=== PATIENT | female | born 1945 | race Caucasian/White ===

== ENCOUNTER → 2017-03-01 | Outpatient (CLI) | payer MEDICARE ==
[2016-02-11 09:00] VITALS: BP 142/71
[~2017-03-01] MED LIST: ALLO100T PO; BRIM5DRO3 EACHEYE; BYSTOLIC5 MG PO; GLIM2TAB2 PO; LISI-334 PO; LOVA10TA PO; OMEG100020 PO; VENL75CA PO
--- NOTE | 2017-03-01 15:31 | RAD ---
DATE: 03/01/2017 EXAM: DIGITAL SCREEN BILAT W/CAD HISTORY: Breast screening, previous right breast cancer COMPARISON: 06/12/2015, 02/11/2016 This study was interpreted with the benefit of Computerized Aided Detection (CAD). The breast parenchyma is heterogeneously dense, which could reduce sensitivity of mammography. Breast parenchyma level C. FINDINGS: No new or enlarging breast densities are seen. A breast biopsy marker is noted centrally in the left breast. Benign type calcifications are present. No suspicious microcalcifications have developed. IMPRESSION: Stable mammograms without evidence of malignancy. BI-RADS CATEGORY: 2 BENIGN FINDING(S) RECOMMENDED FOLLOW-UP: 12M 12 MONTH FOLLOW-UP PQRS compliance statement: Patient information was entered into a reminder system with a target due date for the next mammogram. Mammography is a sensitive method for finding small breast cancers, but it does not detect them all and is not a substitute for careful clinical examination. A negative mammogram does not negate a clinically suspicious finding and should not result in delay in biopsying a clinically suspicious abnormality. "Our facility is accredited by the [employer] Mammography [employer]."
== END | disposition home or self-care (01) ==
LOC: MAMMO 09:18
PROVIDERS: ATTEND Internal Medicine Hematology & Oncology
DX: Z12.31 Encounter for screening mammogram for malignant neoplasm of breast (principal)
CPT/HCPCS: G0202; 77067

== ENCOUNTER → 2018-03-25 | Outpatient (CLI) | payer MEDICARE ==
[2016-02-11 09:00] VITALS: BP 142/71
--- NOTE | 2018-03-25 15:46 | RAD ---
DATE: 03/25/2018 2:00 AM EXAM: MAMMO DONALDO DIAG BILAT HISTORY: routine diagnostic evaluation. History of prior right breast cancer. COMPARISON: Prior mammographic imaging dating back to 11/30/2008 Bilateral CC and MLO views of the breasts were performed. Bilateral breast tomosynthesis was performed in CC and MLO projections. This study was interpreted with the benefit of Computerized Aided Detection (CAD ). Breast Density: The breast parenchyma is heterogeneously dense, which could reduce sensitivity of mammography. Breast parenchyma level C. FINDINGS: Benign calcifications are present. Apparent architectural distortion in the posterior depth right breast is stable to at least prior mammogram 11/26/2011, possibly from posttreatment change of known prior right breast cancer. Otherwise, no suspicious masses, microcalcifications or architectural distortion is present to suggest malignancy in either breast. The visualized axillae are unremarkable. IMPRESSION: No mammographic evidence of malignancy. BI-RADS CATEGORY: 2 BENIGN FINDING(S) RECOMMENDED FOLLOW-UP: 12M 12 MONTH FOLLOW-UP Annual screening mammography is recommended, unless clinically indicated sooner based on symptoms or change in physical exam. PQRS compliance statement: Patient information was entered into a reminder system with a target due date 03/26/2018 for the next mammogram. Mammography is a sensitive method for finding small breast cancers, but it does not detect them all and is not a substitute for careful clinical examination. A negative mammogram does not negate a clinically suspicious finding and should not result in delay in biopsying a clinically suspicious abnormality. "Our facility is accredited by the [employer] Mammography Program." MACIEJD
== END | disposition home or self-care (01) ==
LOC: MAMMO 09:21
PROVIDERS: ATTEND Internal Medicine Hematology & Oncology
DX: Z00.00 Encounter for general adult medical examination without abnormal findings (principal); Z85.3 Personal history of malignant neoplasm of breast
CPT/HCPCS: 77066; G0279; 77062

== ENCOUNTER → 2019-03-28 | Outpatient (CLI) | payer MEDICARE ==
[2016-02-11 09:00] VITALS: BP 142/71
[~2019-03-28] MED LIST changes: -GLIM2TAB2 PO; +GLIM2TAB3 PO
--- NOTE | 2019-03-29 12:24 | RAD ---
DATE: 03/28/2019. EXAM: MAMMO DONALDO SCREENING BILATERAL. HISTORY: Routine mammographic screening. COMPARISON: 03/25/2018. This study was interpreted with the benefit of Computerized Aided Detection (CAD). FINDINGS: Breast Density: HETERO The breast parenchyma is heterogenously dense, which could reduce sensitivity of mammography. Breast parenchyma level C.. A nodule superiorly and slightly laterally on the left is new or increased. Multiple other nodules on the left are stable or decreased. A postbiopsy clip is noted on the left. On the right, coarse and scattered calcifications are benign. A few scattered nodules are stable. BI-RADS CATEGORY: 0 INCOMPLETE: NEEDS ADDITIONAL IMAGING EVALUATION AND/OR PRIOR MAMMOGRAMS FOR COMPARISON.. RECOMMENDED FOLLOW-UP: ADD ADDITIONAL IMAGING. 1. Recommend sonography of the left upper outer breast to assess an increased or new nodule that most likely represents a cyst. PQRS compliance statement: Patient information was entered into a reminder system with a target due date (now) for the next mammogram. Mammography is a sensitive method for finding small breast cancers, but it does not detect them all and is not a substitute for careful clinical examination. A negative mammogram does not negate a clinically suspicious finding and should not result in delay in biopsying a clinically suspicious abnormality. "Our facility is accredited by the [employer] Mammography Program."
== END | disposition home or self-care (01) ==
LOC: MAMMO 10:22
PROVIDERS: ATTEND Internal Medicine Hematology & Oncology
DX: Z12.31 Encounter for screening mammogram for malignant neoplasm of breast (principal); N64.89 Other specified disorders of breast; N63.20 Unspecified lump in the left breast, unspecified quadrant; N63.10 Unspecified lump in the right breast, unspecified quadrant
CPT/HCPCS: 77063; 77067

== ENCOUNTER → 2019-04-12 | Outpatient (CLI) | payer MEDICARE ==
[2016-02-11 09:00] VITALS: BP 142/71
--- NOTE | 2019-04-12 10:49 | RAD ---
LEFT BREAST SONOGRAPHY Clinical indications: Further evaluation of the nodule of the upper outer quadrant of left breast seen on the screening mammogram dated March 28, 2019. FINDINGS: High-resolution sonography of the upper-outer quadrant of the left breast was performed. At the 1:00 position 4 cm from the nipple, a simple cyst is seen measuring 13 mm in size which corresponds to the mammographic finding. Additional smaller cysts of the upper-outer quadrant of the left breast are seen. IMPRESSION: 13 mm simple cyst at the 1:00 position which corresponds to the mammographic finding. Recommend routine screening mammography in one year. BI-RADS Category 2 benign finding. The patient information was entered into the data reminder system with a target due date for the next mammogram of March 29, 2020.
== END | disposition home or self-care (01) ==
LOC: US 10:02
PROVIDERS: ATTEND Internal Medicine Hematology & Oncology
DX: N60.02 Solitary cyst of left breast (principal); D05.11 Intraductal carcinoma in situ of right breast
CPT/HCPCS: 76641

== ENCOUNTER → 2020-04-08 | Outpatient (CLI) | payer MEDICARE ==
[2016-02-11 09:00] VITALS: BP 142/71
[~2020-04-08] MED LIST changes: -GLIM2TAB3 PO; +GLIM2TAB7 PO
--- NOTE | 2020-04-10 14:45 | RAD ---
DATE: 04/08/2020 3:35 PM EXAM: MAMMO DONALDO SCREENING BILATERAL HISTORY: Screening COMPARISON: 03/28/2019, 03/25/2018 Bilateral CC and MLO views of the breasts were performed. Bilateral breast tomosynthesis was performed in CC and MLO projections. This study was interpreted with the benefit of Computerized Aided Detection (CAD). FINDINGS: Breast Density: HETERO The breast parenchyma Is heterogeneously dense, which could reduce sensitivity of mammography. Breast parenchyma level C Waxing and waning pattern of nodularity most conspicuous in the left breast is present with no developing mass, architectural distortion or suspicious calcifications. S shaped benign biopsy marker in the middle third left 12:00 position redemonstrated. No suspicious masses, microcalcifications or architectural distortion is present to suggest malignancy in either breast. The visualized axillae are unremarkable. IMPRESSION: No mammographic evidence of malignancy. BI-RADS CATEGORY: 2 BENIGN FINDING(S) RECOMMENDED FOLLOW-UP: 12M 12 MONTH FOLLOW-UP Annual screening mammography is recommended, unless clinically indicated sooner based on symptoms or change in physical exam. PQRS compliance statement: Patient information was entered into a reminder system with a target due date for the next mammogram. Mammography is a sensitive method for finding small breast cancers, but it does not detect them all and is not a substitute for careful clinical examination. A negative mammogram does not negate a clinically suspicious finding and should not result in delay in biopsying a clinically suspicious abnormality. "Our facility is accredited by the [employer] Mammography [employer]."
== END ==
LOC: MAMMO 15:17
PROVIDERS: ATTEND Internal Medicine Hematology & Oncology
DX: Z12.31 Encounter for screening mammogram for malignant neoplasm of breast (principal)
CPT/HCPCS: 77063; 77067

== ENCOUNTER → 2021-04-21 | Outpatient (CLI) | payer MEDICARE ==
[2016-02-11 09:00] VITALS: BP 142/71
[~2021-04-21] MED LIST changes: -LISI-334 PO; +LISI20TA18 PO
--- NOTE | 2021-04-22 09:30 | RAD ---
Bilateral digital screening 2-D and 3-D (digital breast tomosynthesis) mammogram: Reason for examination: Routine screening. Comparison: Mammograms from 04/08/2020, 03/28/2019. Left breast ultrasound from 04/12/2019. Interpretation was made with the benefit of CAD. FINDINGS: Breast density: Category B. There are scattered areas of fibroglandular density. No suspicious breast mass, malignant appearing calcifications, or architectural distortion is seen. T here are small oval circumscribed masses in both breasts. Some of these have decreased in size spleen the left. These are consistent with benign findings. Again seen is a biopsy marker in the central/1: 00 region of the right breast. There is unchanged scarring in the right outer breast from previous jeanie mpectomy. IMPRESSION: No evidence of malignancy. Assessment: BI-RADS 2. Benign findings. Recommendation: Routine screening mammograms. The patient will receive a letter with the results in the mail. Patient information will be entered i nto the mammography reminder system with a target recall date for the next mammogram. A reminder michelle er will be generated. Electronically signed by: Gwendolyn Miguel MD (04/22/2021 9:28 AM) [id number]
== END ==
LOC: MAMMO 10:23
PROVIDERS: ATTEND Internal Medicine Hematology & Oncology
DX: Z12.31 Encounter for screening mammogram for malignant neoplasm of breast (principal)
CPT/HCPCS: 77063; 77067